=== PATIENT | male | born 1955 | race Caucasian/White ===

== ENCOUNTER 2019-04-28 12:23 | Emergency (ER) | payer BC, OTHER ==
[2019-04-28] MEDS ORDERED: HYDROcodone/Acetaminophen 5/325 mg Tablet ONE (12:39)
[2019-04-28] MEDS ORDERED: Ibuprofen 800 MG TAB ONE (12:39)
--- NOTE | 2019-04-28 13:14 | CT ---
CT lumbar spine noncontrast HISTORY: Low back pain. FINDINGS: No comparison. Calcification is apparent within the arterial structures of the abdomen. Vandana tebral body heights and alignment are maintained. Bone island is noted within the right iliac bone near the sacroiliac joint. No acute fracture, dislocation, or aggressive osseous erosions. Prominent osteophytosis throughout th e facets in the lower vertebral bodies. Gas disc phenomenon and disc space narrowing at the L4-5 level. Significant Central Canal stenoses are apparent at the L2-3, L3-4, and L4-5 levels. Prominent bilater al foraminal stenoses are most pronounced at the lowest 2 levels. IMPRESSION: No acute osseous abnormalities are demonstrated. Prominent degenerative changes lower lumbar spine, including probably severe stenosis at each neural foramen of the lowest 2 levels. Clinical correlation regarding each L4 and L5 dermatome is required. MRI would be most appropriate, if possible, for better evaluation of the soft tissues. No traumatic disc herniation is apparent. Atherosclerosis.
== END 2019-04-28 13:29 | disposition home or self-care (01) ==
LOC: BURERS 12:23
DX: M47.816 Spondylosis without myelopathy or radiculopathy, lumbar region (principal)
CPT/HCPCS: 72131

== ENCOUNTER 2020-05-25 12:05 | Emergency (ER) | payer BC ==
[2020-05-25 12:31] LABS: #Basophils 0.1 thou/uL (0.0-0.2); #Eosinphils 0.1 thou/uL (0.0-0.7); #Lymphocytes 2.1 thou/uL (1.20-3.40); #Monocytes 0.8 thou/uL (0.11-0.59); #Neutrophils 6.8 thou/uL (1.40-6.50); %Basophils 0.9 % (0.0-1.0); %Lymphocytes 21.6 % (21.0-51.0); %Monocytes 7.7 % (0.0-10.0); %Neutrophils 68.9 % (42.0-75.0); Hemoglobin 15.8 g/dL (14.0-18.0); Mean Corpuscular HGB CONC 33.4 g/dL (32.0-36.0); Mean Corpuscular Hemoglobin 30.6 pg (27.0-31.0); Mean Corpuscular Volume 91.6 fL (78.0-98.0); Mean Platelet Volume 6.9 fL (7.4-10.4); Platelet Count 314 thou/uL (130-400); RBC Distribution Width 10.8 % (11.5-14.5); Red Blood Cell (RBC) Count 5.17 mill/uL (4.70-6.10); White Blood Cell (WBC) Count 9.8 thou/uL (4.8-10.8)
[2020-05-25 12:45] LABS: ALT (SGPT) 17 U/L (8-55); AST (SGOT) 19 U/L (5-34); Albumin 4.8 g/dL (3.4-4.8); Alkaline Phosphatase 68 U/L (40-110); Anion Gap 21 mmol/L (10-20); BUN (Urea Nitrogen) 41 mg/dL (8.4-25.7); CK (CPK) 314 U/L (30-200); Calc. Creatinine Clearance 0 mL/min (70-130); Calcium 9.5 mg/dL (7.8-10.44); Carbon Dioxide 19 mmol/L (23-31); Chloride 94 mmol/L (98-107); Globulin 2.6 g/dL (2.4-3.5); Glucose 129 mg/dL (80-115); Potassium 4.3 mmol/L (3.5-5.1); Protein, Total 7.4 g/dL (5.8-8.1); Sodium 130 mmol/L (136-145)
== END 2020-05-25 13:50 | disposition left against medical advice (07) ==
LOC: BURERS 12:05
DX: N17.9 Acute kidney failure, unspecified (principal); E86.0 Dehydration; I95.9 Hypotension, unspecified; I10 Essential (primary) hypertension
CPT/HCPCS: 80053; 82550; 84484; 85025; 93005; 96360